=== PATIENT | male | born 1990 | race Two or more races ===

== ENCOUNTER 2024-06-27 14:07 | Inpatient (IN) | payer MEDICAID, SELFPAY ==
[2024-06-27 14:08] VITALS: BMI 42.3
[2024-06-27 15:04] VITALS: BP 139/82; PULSE 99; RESP 18; TEMP 37.2; O2SAT 98; BMI 40.5
--- NOTE | 2024-06-27 15:26 | XR_ITS ---
Examination: CT abdomen with intravenous contrast CT pelvis with intravenous contrast 2-D coronal reconstructions 2-D sagittal reconstructions Date and time of exam:June 19, 2024 1644 hrs. Indications: Rectal pain redness swelling and pain involving the right buttock region beginning 4 days ago, history abscess surgery 3 months ago. CTDI: vol (mGy) 16.4 DLP: (mGycm) 1142 Technique: Multiple axial sections of the abdomen and pelvis have been obtained. 64 slice high-resolution scanner used. 3 mm axial sections have been obtained, post intravenous injection 60 cc [id number] 2-D sagittal, coronal reconstructions obtained. Low dose protocols were performed. One or more of the following dose reduction techniques were used; automated exposure control, adjustment of the mA and/or KV according to patient size, use of iterative reconstruction technique. Findings: No focal liver or splenic lesion Contracted gallbladder Normal pancreas normal adrenal glands. No renal or ureteral calculi, no hydronephrosis Aorta normal size Normal appendix No bowel obstruction or diverticulitis Normal prostate Normal urinary bladder Right perianal abscess, 3.0 x 2.3 x 5.4 cm Impression: Right perianal abscess 3.0 x 2.3 x 5.4 cm
--- NOTE | 2024-06-27 15:27 | PD.EDRME ---
Rapid Medical Screening Exam RME Arrival date/time: 06/27/24 14:07 33-year-old male presents emergency department complaining of perirectal abscess that is been ongoing for 4 days. Chief Complaint: Skin/Abscess/Foreign Body Time Seen by Provider: 06/27/24 15:09 Vital signs: Vital Signs Temperature 99.0 F 06/27/24 15:04 Pulse Rate 99 06/27/24 15:04 Respiratory Rate 18 06/27/24 15:04 Blood Pressure 139/82 H 06/27/24 15:04 Pulse Oximetry (%) 98 06/27/24 15:04 Oxygen Delivery Method Room Air 06/27/24 15:04 Vital signs reviewed by provider: Yes
[2024-06-27 16:27] LABS: Lactate (Lactic Acid) 1.2 mMol/L (0.4-2.0)
[2024-06-27 16:28] LABS: Basophils % (Auto) 0 % (0-2.5); Eosinophils % (Auto) 0 % (0-10); Hemoglobin 14.7 g/dL (13.5-16.0); Immature Granulocytes % (Auto) 0 % (0-0); Immature Granulocytes Auto 0.04 Thou/mm3 (0.00-0.00); Lymphocytes # (Auto) 1.6 Thou/mm3 (1.0-4.8); Lymphocytes % (Auto) 13 % (10-50); Mean Corpuscular HGB Conc 34.2 g/dl (31.0-37.0); Mean Corpuscular Hemoglobin 28.7 pg (25.0-35.0); Mean Corpuscular Volume 84 fL (80-100); Monocytes # (Auto) 0.7 Thou/mm3 (0.0-0.8); Monocytes % (Auto) 6 % (0-12); Neutrophils # (Auto) 9.6 Thou/mm3 (1.8-7.7); Neutrophils % (Auto) 80 % (37-80); Nucleated Red Blood Cell % 0 /100 WBC (0); Platelet Count 284 Thou/mm3 (140-440); RDW Standard Deviation 41.2 fL (35.1-43.9); Red Blood Count 5.12 Miln/mm3 (4.50-5.90)
[2024-06-27 16:57] VITALS: BP 133/82; PULSE 88; RESP 18; TEMP 37.6; O2SAT 98
[2024-06-27 17:04] LABS: Alanine Aminotransferase 22 U/L (10-49); Albumin/Globulin Ratio 1.9 (1.2-2.2); Alkaline Phosphatase 87 U/L (46-116); Anion Gap 10 (7-16); BUN/Creatinine Ratio 8 Ratio (12-20); Bilirubin,Total 0.8 mg/dL (0.3-1.2); Blood Urea Nitrogen 8 mg/dL (9-23); Calcium 10.1 mg/dL (8.3-10.6); Calcium (Corrected) 10.1 mg/dL (8.5-10.1); Carbon Dioxide 25.4 mMol/L (20.0-31.0); Chloride 104 mMol/L (98-107); Estimated Creatinine Clearance 152.6 mL/min (>60); Globulin 2.7 gm/dL (2.3-3.5); Glucose 91 mg/dL (74-106); Osmolality,Calculated 275 (275-295); Potassium 3.8 mMol/L (3.4-5.1); Sodium 139 mMol/L (136-145); Total Protein 7.7 gm/dL (5.7-8.2); eGFR > 60 See Note
[2024-06-27 17:11] LABS: Aspartate Amino Transferase 16 U/L (0-34); Procalcitonin 0.07 ng/ml (0.0-0.49)
[2024-06-27 20:06] VITALS: BP 126/68; PULSE 93; RESP 17; TEMP 37.3; O2SAT 98
--- NOTE | 2024-06-27 20:09 | PD.EDSKIN ---
ED Skin Abcess FB-RME/HPI General Chief complaint: Skin/Abscess/Foreign Body Stated complaint: ABCESS TO RIGHT BUTT x 4 DAYS Time Seen by Provider: 06/27/24 15:09 Arrival date/time: 06/27/24 14:07 This is a 33-year-old male that comes in with complaints of anal pain for the past 4 to 5 days. Patient has a history of a perianal abscess that was drained on 04/06/24. Per patient had surgery to open it up. Patient was doing packing up until 2 weeks ago. Patient has already finished antibiotics approximately 2 months ago. RME / HPI RME / HPI narrative: 06/27/24 14:07 33-year-old male presents emergency department complaining of perirectal abscess that is been ongoing for 4 days. Related Data Previous Rx's ?Medication ?Instructions ?Recorded amoxicillin 875 mg-potassium 1 tab PO BID #14 tabs 06/30/24 clavulanate 125 mg tablet ascorbic acid (vitamin C) 250 mg 500 mg (2 x 250 mg) PO BID #14 tabs 06/30/24 tablet (Vitamin C) docusate sodium 100 mg capsule 100 mg PO BID 30 days #60 caps 06/30/24 zinc sulfate 50 mg zinc (220 mg) 220 mg (4.4 x 50 mg zinc (220 mg)) 06/30/24 capsule PO QDAY 7 days #14 caps Allergies Allergy/AdvReac Type Severity Reaction Status Date / Time No Known Allergies Allergy Verified 06/28/24 11:46 Review of Systems Review of Systems Systems Reviewed: All systems reviewed, normal except as documented Past Medical History Social History SMOKING STATUS: Former smoker Travel History EBOLA RISK: No ED Exam General General appearance: Present alert and in no apparent distress Head Head exam: Present atraumatic Eye Eye exam: Present normal appearance, PERRL and EOMI ENT ENT exam: Present normal exam, normal oropharynx and mucous membranes moist Neck Neck exam: Present normal inspection, full ROM and trachea midline Chest Chest inspection: Present normal inspection and symmetric chest wall rise Respiratory Respiratory exam: Present normal lung sounds bilaterally Cardiovascular Cardiovascular exam: Present regular rate, normal rhythm and normal heart sounds Abdominal Exam Abdominal exam: Present soft Rectal Exam Rectal exam: Present other (erythema, tenderness at a 3 o'clock position of anus slightly adjacent to it. Tenderness to palpation, old incision approximately 4 mm) Extremities Exam Extremities exam: Present normal inspection and full ROM Back Exam Back exam: Present normal inspection and full ROM Neurological Exam Neurological exam: Present alert, oriented X3 and CN II-XII intact Psychiatric Psychiatric exam: Present normal affect and normal mood Skin Skin exam: Present warm, dry, intact and normal color Course Quality Measures none Orders Category Date Time Status Patient Condition Routine Admission 06/27/24 20:54 Ordered Activity as Tolerated Routine Care 06/27/24 20:59 Ordered COVID-19 Screening Questionnaire NOW Care 06/27/24 20:[address] Screening NOW Care 06/27/24 15:27 Completed Continuous Pulse Oximetry NOW Care 06/27/24 20:58 Completed Decision to Admit X1 Care 06/27/24 20:31 Completed IV [Insert IV] STAT Care 06/27/24 20:31 Completed Intake and Output QSHIFT Care 06/27/24 21:00 Ordered Intake and Output QSHIFT Care 06/28/24 21:00 Ordered Miscellaneous Nursing Order NOW Care 06/27/24 22:54 Completed Notify provider NEEDED Care 06/27/24 20:54 Completed Sequential Compression Device QSHIFT Care 06/27/24 21:03 Completed Wound Care [Wound Care] PRN Care 06/27/24 21:19 Completed Consult to General Surgery Stat Cons 06/27/24 20:27 Ordered Referral Wound Care Routine Cons 06/27/24 21:19 Active Diet NPO after Midnight Diet 06/28/24 00:01 Completed Diet Regular Diet 06/27/[address] abdomen pelvis w con Stat Exams 06/27/24 15:26 Completed Blood Culture (Lab) Stat Lab 06/27/24 15:55 Results CBC AM DRAW Lab 06/28/24 04:04 Completed CBC AM DRAW Lab 06/29/24 04:33 Completed CBC AM DRAW Lab 06/30/24 04:54 Completed CBC Stat Lab 06/27/24 15:55 Completed CMP [Comprehensive Metabolic Panel] Stat Lab 06/27/24 15:55 Completed Comprehensive Metabolic Panel AM DRAW Lab 06/28/24 04:04 Completed Comprehensive Metabolic Panel AM DRAW Lab 06/29/24 04:33 Completed Comprehensive Metabolic Panel AM DRAW Lab 06/30/24 04:54 Completed Free T4 (Free Thyroxine) Routine Lab 06/28/24 04:04 Completed Hemoglobin A1C [Glycohemoglobin w (eAG)] AM DRAW Lab 06/28/24 04:04 Completed Lactic Acid [Lactate (Lactic Acid)] Stat Lab 06/27/24 15:55 Completed Lipid Panel AM DRAW Lab 06/28/24 04:04 Completed Magnesium AM DRAW Lab 06/28/24 04:04 Completed Partial Thromboplastin Time AM DRAW Lab 06/28/24 04:04 Completed Phosphorous AM DRAW Lab 06/28/24 04:04 Completed Procalcitonin Stat Lab 06/27/24 15:55 Completed Prothrombin Time with INR AM DRAW Lab 06/28/24 04:04 Completed Thyroid Stimulating Hormone AM DRAW Lab 06/28/24 04:04 Completed Urinalysis Routine Lab 06/27/24 14:35 Completed Acetaminophen Tab [Tylenol Tab] Med 06/27/24 20:58 Discontinued 650 mg PO Q6H PRN Clindamycin 900Mg Ivpb [Cleocin/D5w Ivpb] 900 mg Med 06/27/24 20:30 Discontinued Pre-Mixed [Pre-mixed Bag] 1 bag IV X1 Clindamycin/Ns 600 mg Ivpb [Cleocin/Ns Ivpb] Med 06/28/24 06:00 Discontinued 600 mg in 50 ml IV Q8HR Doxycycline Inj [Vibramycin Inj] 100 mg Med 06/29/24 09:00 Discontinued Sodium Chloride 0.9% (P) [NS 0.9% mini bag] 100 ml IV BID Doxycycline Inj [Vibramycin Inj] 100 mg Med 06/27/24 21:45 Discontinued Sodium Chloride 0.9% (P) [NS 0.9% mini bag] 100 ml IV X1 HYDROcodone*/APAP 5/325 [[place]ed[place] 5/325] Med 06/27/24 20:58 Discontinued 1 tab PO Q4HR PRN Heparin Inj Med 06/28/24 09:00 Discontinued 5,000 unit SC Q12HR Morphine Inj Med 06/27/24 20:58 Discontinued 2 mg IVP Q6H PRN Nicotine Patch [Nicoderm Patch] Med 06/28/24 09:00 Discontinued 21 mg TOP QDAY Ondansetron Inj [Zofran Inj] Med 06/27/24 20:58 Discontinued 4 mg IV Q6H PRN Senna [Senokot] Med 06/28/24 09:00 Discontinued 1 tab PO QDAY Code Status Routine Oth 06/27/24 20:53 Completed EKG (RT) Routine RT 06/27/24 21:05 Draft Oxygen Delivery PRN RT 06/27/24 20:58 Completed Vital Signs Vital signs: Vital Signs Temperature 99.0 F 06/27/24 15:04 Pulse Rate 99 06/27/24 15:04 Respiratory Rate 18 06/27/24 15:04 Blood Pressure 139/82 H 06/27/24 15:04 Pulse Oximetry (%) 98 06/27/24 15:04 Oxygen Delivery Method Room Air 06/27/24 15:04 Skin / Abscess / Foreign Body MDM Narrative MDM Narrative:: ct abdomen and pelvis: Findings: No focal liver or splenic lesion Contracted gallbladder Normal pancreas normal adrenal glands. No renal or ureteral calculi, no hydronephrosis Aorta normal size Normal appendix No bowel obstruction or diverticulitis Normal prostate Normal urinary bladder Right perianal abscess, 3.0 x 2.3 x 5.4 cm Impression: Right perianal abscess 3.0 x 2.3 x 5.4 cm Labs significant for white count of 12.0, hemoglobin and hematocrit of 14.7 and 43, B MP unremarkable, lactic acid 1.2 procalcitonin 0.07. I did call Dr. Tenorio and I let him know patient case. He stated he would consult on patient in the morning. He would like patient to be n.p.o. after midnight. He would like patient treated with clindamycin 800 mg IV every 8 8 hours. Patient data External records reviewed:: [facility] previous records Clinical information provided by:: patient Social determinants that could affect healthcare access:: none Patient has the following chronic illnesses:: none How is presenting disease/condition affected by chronic disease/condition?: no chronic disease Evaluation data The following diagnostics were reviewed and interpreted by me:: lab results and radiology exam(s) Lab and/or radiology exams considered but not ordered:: none Interpretation Summary: see note Medications / Prescriptions Medications or Prescriptions considered but not ordered:: none Medication administrations:: Medication Administration History Discontinued Medications Acetaminophen (Acetaminophen 325 Mg Tablet) 650 mg PO Q6H PRN PRN Reason: Pain (1-3) and Fever >100.3 Stop: 07/27/24 20:57 Hydrocodone Bitart/Acetaminophen (Hydrocodone/Apap 5/325 Tablet) 1 tab PO Q4HR PRN PRN Reason: PAIN SCALE 4-6 (Moderate Stop: 07/02/24 20:57 Ascorbic Acid (Ascorbic Acid 250 Mg Tablet) 500 mg PO BID [facility] Stop: 07/28/24 20:59 Last Admin: 06/30/24 09:00 Dose: 500 mg Documented By: Admin: 06/29/24 22:08 Dose: 500 mg Documented By: Admin: 06/29/24 09:24 Dose: 500 mg Documented By: Admin: 06/28/24 21:14 Dose: 500 mg Documented By: ALAN Bupivacaine HCl/Epinephrine Bitart (Bupivacaine Mpf/Epi 0.5% 30 Ml Vial 1:200,000) Confirm Administered Dose 30 ml .ROUTE .STK-MED ONE Stop: 06/28/24 11:57 Dexamethasone Sodium Phosphate (Dexamethasone Sod Phos Inj 10 Mg/Ml Vial) Confirm Administered Dose 10 mg .ROUTE .STK-MED ONE Stop: 06/28/24 11:40 Docusate Sodium (Docusate Sod 100 Mg Capsule) 100 mg PO BID [facility]; Protocol Stop: 07/28/24 20:59 Last Admin: 06/30/24 09:00 Dose: 100 mg Documented By: Admin: 06/29/24 22:09 Dose: 100 mg Documented By: Admin: 06/29/24 09:24 Dose: 100 mg Documented By: Admin: 06/28/24 21:14 Dose: 100 mg Documented By: ALAN Fentanyl Citrate (Fentanyl Cit Inj 50 Mcg/Ml Amp 2ml) Confirm Administered Dose 100 mcg .ROUTE .STK-MED ONE Stop: 06/28/24 11:37 Fentanyl Citrate (Fentanyl Cit Inj 50 Mcg/Ml Amp 2ml) 25 mcg IV Q5M PRN PRN Reason: PAIN SCALE 1-3 (mild Stop: 06/28/24 13:57 Heparin Sodium (Porcine) (Heparin Sod Inj 5000 Unit/Ml Vial) 5,000 unit SC Q12HR [facility] Stop: 07/12/24 08:59 Last Admin: 06/30/24 08:58 Dose: 5,000 unit Documented By: JESSICA Co-signed By: ISH Admin: 06/29/24 22:08 Dose: 5,000 unit Documented By: ALAN Co-signed By: JOHANN Admin: 06/29/24 09:24 Dose: 5,000 unit Documented By: GULSHAN Co-signed By: JEAN Admin: 06/28/24 21:14 Dose: 5,000 unit Documented By: ALAN Co-signed By: ALLY Admin: 06/28/24 08:37 Dose: 5,000 unit Documented By: SUKHWINDER Co-signed By: RIZWANA Clindamycin Phosphate 900 mg/ (IV Miscellaneous Supplies) 50 mls @ 50 mls/hr IV X1 ONE Stop: 06/27/24 21:29 Last Infusion: 06/27/24 21:54 Dose: Infused Documented By: [email or web address]) Admin: 06/27/24 20:38 Dose: 50 mls/hr Documented By: [email or web address]) Doxycycline Hyclate 100 mg/ (Sodium Chloride) 100 mls @ 100 mls/hr IV BID [facility] Stop: 07/04/24 21:14 Clindamycin/Sodium Chloride (Cleocin/Ns Ivpb) 600 mg in 50 mls @ 100 mls/hr IV Q8HR [facility] Stop: 07/05/24 05:59 Last Admin: 06/28/24 14:23 Dose: 100 mls/hr Documented By: Infusion: 06/28/24 05:56 Dose: Infused Documented By: Admin: 06/28/24 05:26 Dose: 100 mls/hr Documented By: ALAN Doxycycline Hyclate 100 mg/ (Sodium Chloride) 100 mls @ 100 mls/hr IV X1 ONE Stop: 06/27/24 22:44 Last Infusion: 06/27/24 23:04 Dose: Infused Documented By: RIZWANA(2) Admin: 06/27/24 22:00 Dose: 100 mls/hr Documented By: [email or web address]) Acetaminophen (Ofirmev Inj) 1,000 mg in 100 mls @ 250 mls/hr IV Q6HR [facility] Stop: 06/29/24 06:23 Last Admin: 06/29/24 05:06 Dose: 250 mls/hr Documented By: Infusion: 06/28/24 23:59 Dose: Infused Documented By: Admin: 06/28/24 23:35 Dose: 250 mls/hr Documented By: Infusion: 06/28/24 18:43 Dose: Infused Documented By: Admin: 06/28/24 18:19 Dose: 250 mls/hr Documented By: Infusion: 06/28/24 14:08 Dose: Infused Documented By: Admin: 06/28/24 13:44 Dose: 250 mls/hr Documented By: SUKHWINDER Piperacillin/Tazobactam/Dextrose (Zosyn) 3.375 gm in 50 mls @ 12.5 mls/hr IV Q8HR [facility]; Protocol Stop: 07/05/24 21:59 Last Admin: 06/30/24 05:57 Dose: 12.5 mls/hr Documented By: Infusion: 06/30/24 02:07 Dose: Infused Documented By: Admin: 06/29/24 22:07 Dose: 12.5 mls/hr Documented By: Infusion: 06/29/24 18:38 Dose: Infused Documented By: Admin: 06/29/24 14:38 Dose: 12.5 mls/hr Documented By: Infusion: 06/29/24 09:06 Dose: Infused Documented By: Admin: 06/29/24 05:06 Dose: 12.5 mls/hr Documented By: Infusion: 06/29/24 01:14 Dose: Infused Documented By: Admin: 06/28/24 21:14 Dose: 12.5 mls/hr Documented By: ALAN Piperacillin/Tazobactam/Dextrose (Zosyn) 3.375 gm in 50 mls @ 100 mls/hr IV X1 ONE Stop: 06/28/24 15:59 Last Admin: 06/28/24 15:31 Dose: 100 mls/hr Documented By: SUKHWINDER Vancomycin HCl (Vancomycin/Water 1250 Mg Ivpb) 250 mls @ 120 mls/hr IV TID [facility] Stop: 07/05/24 15:29 Last Admin: 06/29/24 05:05 Dose: 120 mls/hr Documented By: Infusion: 06/28/24 23:19 Dose: Infused Documented By: Admin: 06/28/24 21:14 Dose: 120 mls/hr Documented By: Infusion: 06/28/24 18:08 Dose: Infused Documented By: Admin: 06/28/24 16:03 Dose: 120 mls/hr Documented By: SUKHWINDER Vancomycin HCl 1,500 mg/ (Sodium Chloride) 500 mls @ 200 mls/hr IV Q8HR [facility] Stop: 07/06/24 14:29 Last Admin: 06/30/24 05:56 Dose: 200 mls/hr Documented By: Infusion: 06/30/24 00:38 Dose: Infused Documented By: Admin: 06/29/24 22:08 Dose: 200 mls/hr Documented By: Infusion: 06/29/24 17:09 Dose: Infused Documented By: Admin: 06/29/24 14:39 Dose: 200 mls/hr Documented By: GULSHAN Cefazolin Sodium (Ancef 2gm Ivpb) 2 gm in 100 mls @ 100 mls/hr IV Q8HR [facility] Stop: 07/07/24 08:01 Last Admin: 06/30/24 08:58 Dose: 100 mls/hr Documented By: JESSICA Ketorolac Tromethamine (Ketorolac Inj 30 Mg/Ml Vial) Confirm Administered Dose 30 mg .ROUTE .STK-MED ONE Stop: 06/28/24 11:40 Midazolam HCl (Midazolam Inj 1 Mg/Ml Vial 2 Ml) Confirm Administered Dose 2 mg .ROUTE .STK-MED ONE Stop: 06/28/24 11:39 Morphine Sulfate (Morphine Sulf Inj 10 Mg/Ml Vial) 2 mg IVP Q6H PRN PRN Reason: PAIN SCALE 7-10 (Severe Stop: 07/02/24 20:57 Last Admin: 06/28/24 06:08 Dose: 2 mg Documented By: ALAN Nicotine (Nicotine Patch 21 Mg/24 Hr Patch.Td24) 21 mg TOP QDAY [facility] Stop: 07/28/24 08:59 Last Admin: 06/30/24 09:00 Dose: 21 mg Documented By: Admin: 06/29/24 09:24 Dose: 21 mg Documented By: Admin: 06/28/24 08:37 Dose: 21 mg Documented By: SUKHWINDER Ondansetron HCl (Ondansetron Inj 2 Mg/Ml Inj 2 Ml) 4 mg IV Q6H PRN; Protocol PRN Reason: NAUSEA OR VOMITING Stop: 07/27/24 20:57 Ondansetron HCl (Ondansetron Inj 2 Mg/Ml Inj 2 Ml) Confirm Administered Dose 4 mg .ROUTE .STK-MED ONE Stop: 06/28/24 11:40 Ondansetron HCl (Ondansetron Inj 2 Mg/Ml Inj 2 Ml) 4 mg IV X1 ONE Stop: 06/28/24 11:58 Pharmacy Consult (Vancomycin Pharmacy To Dose 1 Each Each) 1 each IV QDAY PRN PRN Reason: CONSULT Stop: 07/28/24 15:14 Propofol (Propofol Inj 10 Mg/Ml Vial 20 Ml) Confirm Administered Dose 200 mg IV .STK-MED ONE Stop: 06/28/24 11:37 Sennosides (Senna Tablet) 1 tab PO QDAY [facility]; Protocol Stop: 07/28/24 08:59 Last Admin: 06/28/24 08:42 Dose: Not Given Documented By: EA Non-Admin Reason: NPO Vancomycin HCl (Vancomycin Inj 1,000 Mg Vial) Confirm Administered Dose 1,000 mg .ROUTE .STK-MED ONE Stop: 06/29/24 21:45 Last Admin: 06/29/24 22:23 Dose: Not Given Documented By: MP Non-Admin Reason: Duplicate Medication on eMAR Vancomycin HCl (Vancomycin Inj 500 Mg Vial) Confirm Administered Dose 500 mg .ROUTE .STK-MED ONE Stop: 06/29/24 21:45 Last Admin: 06/29/24 22:23 Dose: Not Given Documented By: MP Non-Admin Reason: Duplicate Medication on eMAR Vancomycin HCl (Vancomycin Inj 1,000 Mg Vial) Confirm Administered Dose 1,000 mg .ROUTE .STK-MED ONE Stop: 06/30/24 05:31 Last Admin: 06/30/24 06:15 Dose: Not Given Documented By: MP Non-Admin Reason: Duplicate Medication on eMAR Vancomycin HCl (Vancomycin Inj 500 Mg Vial) Confirm Administered Dose 500 mg .ROUTE .STK-MED ONE Stop: 06/30/24 05:31 Last Admin: 06/30/24 06:15 Dose: Not Given Documented By: MP Non-Admin Reason: Duplicate Medication on eMAR Zinc Sulfate (Zinc Sulfate 220 Mg Capsule) 220 mg PO QDAY [facility] Stop: 07/28/24 13:19 Last Admin: 06/30/24 08:59 Dose: 220 mg Documented By: Admin: 06/29/24 09:23 Dose: 220 mg Documented By: Admin: 06/28/24 13:44 Dose: 220 mg Documented By: SUKHWINDER see mar Consultations Consultation(s) initiated? (list below): No Diagnosis Skin/Abscess Differential Diagnosis: abscess of skin or subcutaneous tissue and cellulitis Most likely diagnosis given after review of the tests above:: abscess Admission Indicated Admission indicated?: indicated Admission Request Was there a request for admission?: Yes Admission Attestation Admission request attestation: Discussed case with Hospitalist service regarding admission. Discussed patients ED course, exam findings, labs, and radiology results. The Hospitalist agrees to accept the patient for admission. Disposition Plan Disposition Plan: Admit Discharge Plan Plan Patient Disposition: Admit Acute Care w/in Hospital Patient condition on transfer: Stable Problem List Clinical Impression: Perianal abscess, Cellulitis Patient/Caregiver Discharge Instructions Discharge Activity: activity as tolerated PA/BOOKMAKER MAP Supervising Physician PA/BOOKMAKER MAP Supervising Physician: scott
[2024-06-27 20:28] VITALS: BP 126/68; PULSE 83; RESP 18; O2SAT 95
[2024-06-27] MEDS: CLINDAMYCIN 900MG IVPB 900 MG in PRE-MIXED 1 BAG 50 MG IV (20:38)
--- NOTE | 2024-06-27 21:05 | EKG_ITS ---
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
--- NOTE | 2024-06-27 21:13 | PC.RT ---
medical laboratory technical officer made aware of EKG at this time pt remains on ED1
--- NOTE | 2024-06-27 21:20 | PD.RESHP ---
Documentation for date of: 06/27/24 [facility] History of Present Illness Chief complaint: Perianal abscess History of present illness: Mr. Garcia is a 33-year-old male with no significant past medical history who presented to [facility] on 06/27/2022 for with chief complaint of pain and discomfort in right gluteal region. Patient reported that his symptoms started about a week ago, complains of severe discomfort interfering with his activities of daily living, reported having fever chills and sweats yesterday night. He reports that his pain is aggravated when he has a bowel movement, reports his last bowel movement was about 2 days ago, patient complained of similar symptoms in the past, reports having incision and drainage in March earlier this year, was admitted in the hospital in [place]. Otherwise he denies any chest pain shortness of breath and headache. ED Course: ED Vitals: On presentation BP 139/82, P 99, RR 18, temp 99.0, O2 sat 98 on room air ED Labs: ED labs significant for WBC 12,000, neutrophil 9600, BUN 8, Pro-Dank 0.07 ED Imaging: CT scan of abdomen pelvis shows Right perianal abscess 3.0 x 2.3 x 5.4 cm ED Treatment: General surgery was consulted in ED, patient started on clindamycin per general surgery recommendations, patient will receive surgical evaluation in morning, will keep n.p.o. after midnight. Patient admitted for management of perianal abscess. Review of Systems Review of Systems Narrative Review of Systems: ROS: -CONSTITUTIONAL: Denies weight loss, positive for fever and chills. -HEENT: Denies changes in vision and hearing. -RESPIRATORY: Denies SOB and cough. -CV: Denies palpitations and Chest Pain. -GI: Deniesnausea, vomiting and diarrhea. Positive for right gluteal pain, constipation. -: Denies dysuria and urinary frequency. -MSK: Denies myalgia and joint pain. -SKIN: Denies rash and pruritus. -NEUROLOGICAL: Denies headache and syncope. -PSYCHIATRIC: Denies recent changes in mood. Denies anxiety and depression. Past Medical History Past Medical History Comments PMH COMMENT: PMH: No significant past medical history PSHx: I&D for right gluteal abscess in March 2024 in [place], arm and foot surgery in the past. 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 Obese. Conversational and non-toxic appearing. HEENT: Normocephalic, atraumatic, mucous membranes moist. Heart: Regular rate and rhythm, no murmurs. Lungs: Clear to auscultation with no wheezing or crackles. Abdomen: Soft, nondistended, nontender, positive bowel sounds. ?No guarding or rebound tenderness. Neurologic: Alert and oriented x3, no gross neurological deficit, and patient able to move all 4 extremities. Extremities: No edema. Skin: Redness and tenderness noted in right gluteal region, perianal. Results: Labs 06/27/24 15:55 06/27/24 15:55 Labs: Short CBC 06/27/24 Range/Units 15:55 WBC 12.0 H (3.8-10.6) Thou/mm3 Hgb 14.7 (13.5-16.0) g/dL Hct 43.0 (41.0-53.0) % Plt Count 284 (140-440) Thou/mm3 BMP 06/27/24 15:55 Sodium 139 Potassium 3.8 Chloride 104 Carbon Dioxide 25.4 BUN 8 L Creatinine 1.0 Glucose 91 Calcium 10.1 Liver Function 06/27/24 Range/Units 15:55 Total Bilirubin 0.8 (0.3-1.2) mg/dL AST 16 (0-34) U/L ALT 22 (10-49) U/L Alkaline Phosphatase 87 (46-116) U/L Albumin 5.0 (3.5-5.0) gm/dL Quality Measures Quality Measures VTE prophylaxis Medications Home Medications and Allergies Home Medications ?Medication ?Instructions ?Recorded ?Confirmed ?Type No Known Home Medications 06/28/24 06/28/24 History Allergies Allergy/AdvReac Type Severity Reaction Status Date / Time No Known Allergies Allergy Verified 06/27/24 14:10 Visit Medications Acetaminophen (Acetaminophen 325 Mg Tablet) 650 mg PO Q6H PRN PRN Reason: Pain (1-3) and Fever >100.3 Stop: 07/27/24 20:57 Hydrocodone Bitart/Acetaminophen (Hydrocodone/Apap 5/325 Tablet) 1 tab PO Q4HR PRN PRN Reason: PAIN SCALE 4-6 (Moderate Stop: 07/02/24 20:57 Heparin Sodium (Porcine) (Heparin Sod Inj 5000 Unit/Ml Vial) 5,000 unit SC Q12HR GEOVANNA Stop: 07/12/24 08:59 Clindamycin Phosphate 900 mg/ (IV Miscellaneous Supplies) 50 mls @ 50 mls/hr IV X1 ONE Stop: 06/27/24 21:29 Last Admin: 06/27/24 20:38 Dose: 50 mls/hr Doxycycline Hyclate 100 mg/ (Sodium Chloride) 100 mls @ 100 mls/hr IV BID [facility] Stop: 07/04/24 21:14 Clindamycin/Sodium Chloride (Cleocin/Ns Ivpb) 600 mg in 50 mls @ 100 mls/hr IV Q8HR [facility] Stop: 07/05/24 08:59 Morphine Sulfate (Morphine Sulf Inj 10 Mg/Ml Vial) 2 mg IVP Q6H PRN PRN Reason: PAIN SCALE 7-10 (Severe Stop: 07/02/24 20:57 Ondansetron HCl (Ondansetron Inj 2 Mg/Ml Inj 2 Ml) 4 mg IV Q6H PRN; Protocol PRN Reason: NAUSEA OR VOMITING Stop: 07/27/24 20:57 Sennosides (Senna Tablet) 1 tab PO QDAY [facility]; Protocol Stop: 07/28/24 08:59 Assessment & Plan Plan Summary: Mr. Garcia is a 33-year-old male with no significant past medical history who presented to [facility] on 06/27/2022 for with chief complaint of pain and discomfort in right gluteal region. Patient admitted for management of perianal abscess. #Perianal Abscess #Right buttock cellulitis #Leukocytosis Complains of severe discomfort interfering with his activities of daily living, reported having fever chills and sweats yesterday night, pain is aggravated when he has a bowel movement Had incision and drainage in March earlier this year, was admitted in the hospital in [place] ED labs significant for WBC 12,000, neutrophil 9600 CT scan of abdomen pelvis shows Right perianal abscess 3.0 x 2.3 x 5.4 cm General surgery was consulted in ED, patient started on clindamycin per general surgery recommendations. Plan: -Continue Clindamycin and Doxycycline -Tylenol/[place]/morphine as needed for pain -General Surgery consulted, appreciate recommendations -Referral to wound care -Follow blood culture DVT prophylaxis: Heparin GI prophylaxis: Not indicated Diet: Regular diet Lines: Peripheral IV Code status: Full code Case discussed with Attending Dr. Mattson. Kendrick Handley PGY1 Attending Provider Attestation/Addendum Patient was seen in room 351. He was admitted for right perianal abscess. Surgical evaluation was requested. He was started on IV antibiotics.
[2024-06-27] MEDS: DOXYCYCLINE INJ 100 MG in SODIUM CHLORIDE 0.9% (P) 100 ML IV (22:00)
[2024-06-27 22:41] VITALS: BP 122/73; PULSE 82; RESP 18; O2SAT 98
[2024-06-27 22:49] VITALS: BMI 41.8
[2024-06-27 23:54] VITALS: PULSE 85; RESP 16; RESP 95
[2024-06-28] VITALS (12 sets, daily range): BP systolic 104–144; BP diastolic 58–77; PULSE 69–83; RESP 16–97; TEMP 36.2–37; O2SAT 95–100
[2024-06-28] MEDS: CLINDAMYCIN/NS 600 MG IVPB 600 MG/50 ML BAG 100 MG IV ×2 (05:26→14:23)
[2024-06-28 05:55] LABS: Basophils % (Auto) 0 % (0-2.5); Eosinophils # (Auto) 0.1 Thou/mm3 (0.0-0.5); Eosinophils % (Auto) 1 % (0-10); Hematocrit 38.8 % (41.0-53.0); Hemoglobin 12.8 g/dL (13.5-16.0); Immature Granulocytes % (Auto) 0 % (0-0); Immature Granulocytes Auto 0.04 Thou/mm3 (0.00-0.00); Lymphocytes # (Auto) 1.7 Thou/mm3 (1.0-4.8); Lymphocytes % (Auto) 17 % (10-50); Mean Corpuscular Hemoglobin 28.3 pg (25.0-35.0); Mean Corpuscular Volume 86 fL (80-100); Monocytes # (Auto) 0.9 Thou/mm3 (0.0-0.8); Monocytes % (Auto) 9 % (0-12); Neutrophils # (Auto) 7.4 Thou/mm3 (1.8-7.7); Neutrophils % (Auto) 73 % (37-80); Nucleated Red Blood Cell % 0 /100 WBC (0); Platelet Count 232 Thou/mm3 (140-440); RDW Standard Deviation 41.6 fL (35.1-43.9); Red Blood Count 4.53 Miln/mm3 (4.50-5.90); White Blood Count 10.1 Thou/mm3 (3.8-10.6)
[2024-06-28] MEDS: MORPHINE SULF INJ 10 MG/ML VIAL 2 MG IVP (06:08)
[2024-06-28 06:10] LABS: Partial Thromboplastin Time 29.5 Seconds (22.0-36.0); Prothrombin Time 11.4 Seconds (9.0-12.2)
[2024-06-28 06:28] LABS: Alanine Aminotransferase 21 U/L (10-49); Albumin, Serum 4.1 gm/dL (3.5-5.0); Albumin/Globulin Ratio 1.9 (1.2-2.2); Alkaline Phosphatase 70 U/L (46-116); Anion Gap 8 (7-16); Aspartate Amino Transferase 14 U/L (0-34); BUN/Creatinine Ratio 8 Ratio (12-20); Bilirubin,Total 0.6 mg/dL (0.3-1.2); Blood Urea Nitrogen 8 mg/dL (9-23); Calcium 9.2 mg/dL (8.3-10.6); Calcium (Corrected) 9.2 mg/dL (8.5-10.1); Carbon Dioxide 29.1 mMol/L (20.0-31.0); Cardiac Risk Estimate 3.6 RATIO (4.0-6.7); Chloride 104 mMol/L (98-107); Cholesterol 127 mg/dL (132-200); Estimated Creatinine Clearance 155.3 mL/min (>60); Globulin 2.2 gm/dL (2.3-3.5); Glucose 122 mg/dL (74-106); HDL Cholesterol 35 mg/dL (40-60); LDL Cholesterol,Calculated 72 mg/dL (0-130); Magnesium 1.9 mg/dL (1.6-2.6); Osmolality,Calculated 280 (275-295); Phosphorous 4.4 mg/dL (2.4-5.1); Potassium 3.7 mMol/L (3.4-5.1); Sodium 141 mMol/L (136-145); Thyroid Stimulating Hormone 0.38 uIU/mL (0.55-4.78); Total Protein 6.3 gm/dL (5.7-8.2); Triglycerides 100 mg/dL (30-150); eGFR > 60 See Note
[2024-06-28 06:34] LABS: Glucose Estimated Average 94 mg/dL (80-131); Hemoglobin A1C 4.9 % Hgb (4.8-6.0)
[2024-06-28] MEDS: NICOTINE PATCH 21 MG/24 HR PATCH.TD24 TOP (08:37)
[2024-06-28] MEDS: HEPARIN SOD INJ 5000 UNIT/ML VIAL SC ×2 (08:37→21:14)
[2024-06-28 10:20] LABS: Free T4 (Free Thyroxine) 1.29 ng/dL (0.89-1.76)
--- NOTE | 2024-06-28 10:38 | ESCONSULT_ITS ---
HPI Consult details Consult date: 06/27/24 Reason for consultation narrative: Recurrent perirectal abscess History of present illness: 33-year-old obese male underwent incision and drainage of right perirectal abscess about 3 months ago in [place]. He states that he was managing the wound with packing every other day. Over the past 5 days he has noted increased swelling and tenderness that has been getting progressively worse. He denies any drainage or bleeding. He states that he did have subjective fever and chills. CT scan was obtained that revealed 5.4 cm right perirectal abscess. He was started on IV antibiotics and admitted for further management. Review of Systems Constitutional Constitutional: Reports chills and Reports fever(s) Cardiovascular Cardiovascular: Denies chest pain Respiratory Respiratory: Denies cough Gastrointestinal Gastrointestinal: Denies abdominal pain, Reports hematochezia, Denies nausea and Denies vomiting Genitourinary Genitourinary: Denies difficulty urinating Hematologic/Lymphatic Hematologic/Lymphatic: Denies easy bleeding and Denies easy bruising Past Medical History Surgical History OTHER SURGICAL HX: I&D of perirectal abscess. Arm and foot orthopedic surgeries Social History SMOKING STATUS: Current every day smoker (Vaping) SUBSTANCE USE: does not use ALCOHOL: Current Meds Home Medications and Allergies Home Medications ?Medication ?Instructions ?Recorded ?Confirmed ?Type No Known Home Medications 06/28/24 06/28/24 History Allergies Allergy/AdvReac Type Severity Reaction Status Date / Time No Known Allergies Allergy Verified 06/27/24 14:10 Exam Vital Signs Temp Pulse Resp BP Pulse Ox O2 Del Method 97.9 F 76 18 120/75 98 Room Air 06/28/24 07:27 06/28/24 07:27 06/28/24 07:27 06/28/24 07:27 06/28/24 07:27 06/28/24 07:27 Constitutional Constitutional: no acute distress Routine Abdominal Exam Abdominal: Present soft and normoactive bowel sounds; Absent tenderness or distended Routine Rectal Exam Comments: Significant tenderness with cellulitis and induration of right perianal region surrounding his previous incision Results Results: Laboratory Laboratory results: results reviewed Results: Imaging CT scan - abdomen: report reviewed and image reviewed CT scan - pelvis: report reviewed and image reviewed Assessment & Plan Problem List (1) Perianal abscess: Status: Acute Additional Assessment Additional comments: Recurrent right perianal abscess Plan Continue IV antibiotics and keep NPO. Will plan for incision and drainage of right perianal abscess. Risks include but not limited to infection, bleeding, chronic nonhealing wound, need for further procedure and or operation, possible developing anal fistula in the future discussed with the patient and his family. Benefits and alternatives explained to them, all their questions answered, they agreed and consented to proceed with the operation.
--- NOTE | 2024-06-28 12:12 | SUR.PHASEI ---
1212 Patient arrived to recovery resting comfortably in [facility], on oxygen 8L via oxy mask with an oral airway in place, breathing unlabored, vital signs stable, dressing intact to buttock; packed with fluffs, fluffs, abd, medipore tape, no bleeding noted, lung sounds clear upon auscultation, bilateral radial upon auscultation, report received Zak NANCE and Dr. Reyna
--- NOTE | 2024-06-28 12:20 | PD.SUROPNT ---
Date of Procedure 06/28/24 Pre Op Diagnosis Recurrent right perirectal abscess Post Op Diagnosis Recurrent right perirectal abscess Procedure Incision and drainage of right perirectal abscess Findings Right perirectal cellulitis with induration and recurrent abscess Procedure Description Patient brought into the operating room in supine position. After administration of general endotracheal anesthesia, patient was placed in high lithotomy position. His perineum was prepped and draped in standard surgical manner. He was noted to have cellulitis and induration of right perirectal region and an incision from his previous incision and drainage site. There was some pus emanating from the incision site. The area was anesthetized with half percent Marcaine with epinephrine. The incision was extended to approximately 1 cm cross-shaped dissection was deepened into soft tissue. Copious amount of purulent fluid encountered, cultures were obtained. The purulent fluid from the cavity cavity was evacuated. The cavity was then washed and irrigated copiously with Betadine mixed with peroxide and saline and further washed with warm saline. Hemostasis achieved using electrocautery. The cavity was packed with wet-to-dry dressings. He tolerated the procedure well. He was placed in supine position and extubated. He was breathing spontaneously and without difficulty and was transferred to postanesthesia care in stable condition. Instruments, needles and sponge counts were reported to be correct x 2. Anesthesia MAC and local Pathology / specimen Other (Cultures from the abscess cavity) Estimated Blood Loss 5 Condition Stable Disposition PACU Surgeon Gerard Tenorio MD Surgical Staff Operation Date: 06/28/24 11:30 <No data on this case meets the specified criteria>
--- NOTE | 2024-06-28 12:38 | SUR.PHASEI ---
patient drinking water and eating apple sauce tolerating well
--- NOTE | 2024-06-28 12:43 | SUR.PHASEI ---
1241 Report given to Eleanor NANCE, patient meets discharge criteria from recovery, awake and alert, breathing unlabored, vital signs stable, denies pain, dressing intact; no bleeding noted, patient ate an apple sauce and drinking water, denies nausea 1243 Patient transported via gurney to room 351 without incident, patient able to ambulate from [place] to bed with stand by assist, patient resting comfortably in [facility] with call light in reach when this sql report writer left patients room
[2024-06-28] MEDS: ZINC SULFATE 220 MG CAPSULE PO (13:44)
[2024-06-28] MEDS: ACETAMINOPHEN IVPB 1,000 MG/100 ML VIAL 250 MG IV ×3 (13:44→23:35)
[2024-06-28 15:10] LABS: Collection Type, Urine Clean Catch; RBC,Urine 0 /hpf (0-3); Squamous Epithelial Cell,Urine 0 /hpf (0-5)
[2024-06-28 15:17] LABS: Bilirubin,Urine Negative (Negative); Blood,Urine Negative (Negative); Clarity,Urine Clear (Clear/Hazy); Color,Urine Yellow (Lt Yel-Yel); Glucose, Urine Negative (Negative); Ketones,Urine Negative (Negative); Leukocyte Esterase,Urine Negative (Negative); Nitrite,Urine Negative (Negative); PH,Urine 5.5 (5.0-7.0); Protein,Urine Negative (Neg - Trace); Specific Gravity,Urine 1.017 (1.001-1.035); Urobilinogen,Urine Negative mg/dL (0.0-1.0); WBC,Urine 1 /hpf (0-5)
[2024-06-28] MEDS: PIPER/TAZO 3.375 GM 3.375 GM/50 ML BAG IV ×2 (15:31→21:14)
[2024-06-28] MEDS: VANCOMYCIN/WATER 1250 MG IVPB 250 ML 120 MG IV ×2 (16:03→21:14)
--- NOTE | 2024-06-28 16:24 | PD.RESPRO ---
Documentation for date of: 06/28/24 Subjective Subjective Interval history: Patient was seen and examined at bedside. Denied any new symptoms except the pain at the perianal area. The general surgeon Dr. Tenorio was consulted he recommended to do incision and drainage today. Patient was started on doxycycline and clindamycin by the night team. However, patient reported that he used clindamycin in March for the same abscess. For that reason we will switch the patient antibiotic to Zosyn and vancomycin. Pending abscess culture and sensitivity after the drainage and also blood culture and sensitivity results. Exam Vital Signs Temp Pulse Resp BP Pulse Ox O2 Del Method O2 Flow Rate 97.2 F 73 18 120/67 96 Room Air 2 06/28/24 16:00 06/28/24 16:00 06/28/24 16:00 06/28/24 16:00 06/28/24 16:00 06/28/24 16:00 06/28/24 12:22 Narrative Exam GEN: AOx3, able to speak full sentences HEENT: NC/AC, PERRLA, oral mucosa moist, neck supple CVS: RRR, S1-S2 present, no murmurs appreciated RESP: CTAB GI: soft,non distended, non tender, NBS MSK: able to move all 4 limbs, no lower extremity edema SKIN: Extensive tattoos, warm and dry [employer]: CN II-XII and Sensation grossly intact. Objective Labs 06/29/24 04:33 06/29/24 04:33 Labs: Laboratory Results - last 24 hr 06/27/24 06/27/24 06/28/24 14:35 15:55 04:04 WBC 12.0 H 10.1 RBC 5.12 4.53 Hgb 14.7 12.8 L Hct 43.0 38.8 L MCV 84 86 MCH 28.7 28.3 MCHC 34.2 33.0 RDW Std Deviation 41.2 41.6 Plt Count 284 232 D Neut % (Auto) 80 73 Lymph % (Auto) 13 17 [place] % (Auto) 6 9 Eos % (Auto) 0 1 Baso % (Auto) 0 0 Neut # (Auto) 9.6 H 7.4 Lymph # (Auto) 1.6 1.7 [place] # (Auto) 0.7 0.9 H Eos # (Auto) 0.0 0.1 Baso # (Auto) 0.0 0.0 Immature Gran # (Auto) 0.04 H 0.04 H Absolute Nucleated RBC 0.00 0.00 Immature Gran % 0 0 Nucleated RBC % 0 0 PT 11.4 INR 1.0 APTT 29.5 Sodium 139 141 Potassium 3.8 3.7 Chloride 104 104 Carbon Dioxide 25.4 29.1 Anion Gap 10 8 BUN 8 L 8 L Creatinine 1.0 1.0 Estim Creat Clear Calc 152.6 155.3 eGFR > 60 > 60 BUN/Creatinine Ratio 8 L 8 L Glucose [address] Glu mg/dL 94 Hemoglobin A1c 4.9 Calculated Osmolality 275 280 Lactic Acid 1.2 Calcium 10.1 9.2 Corrected Calcium 10.1 9.2 Phosphorus 4.4 Magnesium 1.9 Total Bilirubin 0.8 0.6 AST 16 14 ALT 22 21 Alkaline Phosphatase 87 70 Total Protein 7.7 6.3 Albumin 5.0 4.1 D Globulin 2.7 2.2 L Albumin/Globulin Ratio 1.9 1.9 Triglycerides 100 Cholesterol 127 L LDL Cholesterol, Calc 72 HDL Cholesterol 35 L Cholesterol/HDL Ratio 3.6 L Procalcitonin 0.07 TSH 0.38 L Free T4 1.29 Ur Collection Type Clean Catch Urine Color Yellow Urine Clarity Clear Urine pH 5.5 Ur Specific [place] 1.017 Urine Protein Negative Urine Glucose (UA) Negative Urine Ketones Negative Urine Blood Negative Urine Nitrite Negative Urine Bilirubin Negative Urine Urobilinogen (Auto) Negative Ur Leukocyte Esterase Negative Urine RBC 0 Urine WBC 1 Ur Squamous Epith Cells 0 Urine Bacteria None Quality Measures Quality Measures VTE prophylaxis Assessment & Plan Assessment Current Active Medications: Generic Name Dose Route Start Last Admin Trade Name Jessa PRN Reason Stop Dose Admin Acetaminophen 650 mg 06/27/24 20:58 Acetaminophen 325 Mg Tablet PO 07/27/24 20:57 Q6H PRN Pain (1-3) and Fever >100.3 Hydrocodone Bitart/Acetaminophen 1 tab 06/27/24 20:58 Hydrocodone/Apap 5/325 Tablet PO 07/02/24 20:57 Q4HR PRN PAIN SCALE 4-6 (Moderate Ascorbic Acid 500 mg 06/28/24 21:00 Ascorbic Acid 250 Mg Tablet PO 07/28/24 20:59 BID GEOVANNA Docusate Sodium 100 mg 06/28/24 21:00 Docusate Sod 100 Mg Capsule PO 07/28/24 20:59 BID [facility] Protocol Heparin Sodium (Porcine) 5,000 unit 06/28/24 09:00 06/28/24 08:37 Heparin Sod Inj 5000 Unit/Ml Vial SC 07/12/24 08:59 5,000 unit Q12HR GEOVANNA Administration Acetaminophen 1,000 mg in 100 mls @ 250 mls/hr 06/28/24 12:00 06/28/24 13:44 Ofirmev Inj IV 06/29/24 06:23 250 mls/hr Q6HR GEOVANNA Administration Piperacillin/Tazobactam/Dextrose 3.375 gm in 50 mls @ 12.5 mls/hr 06/28/24 22:00 Zosyn IV 07/05/24 21:59 Q8HR GEOVANNA Protocol Vancomycin HCl 250 mls @ 120 mls/hr 06/28/24 15:30 06/28/24 16:03 Vancomycin/Water 1250 Mg Ivpb IV 07/05/24 15:29 120 mls/hr TID GEOVANNA Administration Morphine Sulfate 2 mg 06/27/24 20:58 06/28/24 06:08 Morphine Sulf Inj 10 Mg/Ml Vial IVP 07/02/24 20:57 2 mg Q6H PRN Administration PAIN SCALE 7-10 (Severe Nicotine 21 mg 06/28/24 09:00 06/28/24 08:37 Nicotine Patch 21 Mg/24 Hr Patch.Td24 TOP 07/28/24 08:59 21 mg QDAY GEOVANNA Administration Ondansetron HCl 4 mg 06/27/24 20:58 Ondansetron Inj 2 Mg/Ml Inj 2 Ml IV 07/27/24 20:57 Q6H PRN NAUSEA OR VOMITING Protocol Pharmacy Consult 1 each 06/28/24 15:15 Vancomycin Pharmacy To Dose 1 Each Each IV 07/28/24 15:14 QDAY PRN CONSULT Zinc Sulfate 220 mg 06/28/24 13:20 06/28/24 13:44 Zinc Sulfate 220 Mg Capsule PO 07/28/24 13:19 220 mg QDAY GEOVANNA Administration Plan Summary: A 33-year-old male patient presented to the ED due to perianal pain and discomfort for 4 days. In March this year patient had incision and drainage was done and is having packing for the past 2 months. Used clindamycin antibiotic oral at that time. Patient was admitted for perianal abscess incision and drainage. Assessment and plan #Perianal abscess #Sepsis secondary to perianal abscess History of perianal abscess that was drained in March this year. Has been having multiple packing and dressing. Finish 2 weeks of oral antibiotic clindamycin. WBC more than 12,000's. CT scan showed 3 x 2.3 x 5.4 cm of renal abscess. WBC 12,000, pulse of 100 bpm, CT showed perianal abscess. Plan Change clindamycin and doxycycline to Zosyn and vancomycin General Surgery consultation, surgery will be done today Wound care follow-up Follow-up on blood culture and abscess culture and sensitivity results. Hospital Maintenance: FEN: Start regular diet after I&D DVT ppx: Heparin subcu GI ppx: Protonix IV lines: PIV Sanchez: None Code status: Full code Dispo: MedSurg - Patient's plan and care discussed with my attending, Dr. Jennifer Appiah MD Internal Medicine PGY-2 Attending Provider Attestation/Addendum I have examined the patient, reviewed labs and imaging findings, discussed the case with the resident(s), and reviewed entered orders. I agree with the plan of care as outlined in this note, with these additional summaries/recommendations: Patient seen at bedside. Patient admitted for cellulitis and right perianal abscess. Patient went for incision and drainage of right perirectal abscess with general surgery today. Patient tolerated procedure well and currently reports his pain is controlled. Intraoperative culture was taken and will follow up results when available. Blood cultures also pending. Leukocytosis improving. Continue broad-spectrum antibiotics IV vancomycin and Zosyn for now. Repeat hematology and chemistry panel in AM. Patient updated all the plan and in agreement. All questions answered to satisfaction. Dr. Rodriguez
[2024-06-28] MEDS: DOCUSATE SOD 100 MG CAPSULE PO (21:14)
[2024-06-28] MEDS: ASCORBIC ACID 250 MG TABLET 500 MG PO (21:14)
[2024-06-29] VITALS (9 sets, daily range): BP systolic 112–135; BP diastolic 56–75; PULSE 69–85; RESP 16–98; TEMP 35.9–36.7; O2SAT 94–98
[2024-06-29] MEDS: VANCOMYCIN/WATER 1250 MG IVPB 250 ML 120 MG IV (05:05)
[2024-06-29] MEDS: ACETAMINOPHEN IVPB 1,000 MG/100 ML VIAL 250 MG IV (05:06)
[2024-06-29] MEDS: PIPER/TAZO 3.375 GM 3.375 GM/50 ML BAG IV ×3 (05:06→22:07)
[2024-06-29 06:14] LABS: Basophils % (Auto) 0 % (0-2.5); Eosinophils % (Auto) 0 % (0-10); Hematocrit 40.9 % (41.0-53.0); Hemoglobin 13.8 g/dL (13.5-16.0); Immature Granulocytes % (Auto) 1 % (0-0); Immature Granulocytes Auto 0.06 Thou/mm3 (0.00-0.00); Lymphocytes % (Auto) 9 % (10-50); Mean Corpuscular HGB Conc 33.7 g/dl (31.0-37.0); Mean Corpuscular Hemoglobin 28.8 pg (25.0-35.0); Mean Corpuscular Volume 85 fL (80-100); Monocytes # (Auto) 0.6 Thou/mm3 (0.0-0.8); Monocytes % (Auto) 5 % (0-12); Neutrophils # (Auto) 10.3 Thou/mm3 (1.8-7.7); Neutrophils % (Auto) 86 % (37-80); Nucleated Red Blood Cell % 0 /100 WBC (0); Platelet Count 234 Thou/mm3 (140-440); Red Blood Count 4.79 Miln/mm3 (4.50-5.90); White Blood Count 11.9 Thou/mm3 (3.8-10.6)
[2024-06-29 06:38] LABS: Alanine Aminotransferase 36 U/L (10-49); Albumin, Serum 4.1 gm/dL (3.5-5.0); Albumin/Globulin Ratio 1.6 (1.2-2.2); Alkaline Phosphatase 96 U/L (46-116); Anion Gap 9 (7-16); Aspartate Amino Transferase 30 U/L (0-34); BUN/Creatinine Ratio 10 Ratio (12-20); Bilirubin,Total 0.4 mg/dL (0.3-1.2); Blood Urea Nitrogen 9 mg/dL (9-23); Calcium 10.4 mg/dL (8.3-10.6); Calcium (Corrected) 10.4 mg/dL (8.5-10.1); Carbon Dioxide 26.2 mMol/L (20.0-31.0); Chloride 108 mMol/L (98-107); Creatinine (Component) 0.9 mg/dL (0.6-1.3); Estimated Creatinine Clearance 172.5 mL/min (>60); Globulin 2.5 gm/dL (2.3-3.5); Glucose 143 mg/dL (74-106); Osmolality,Calculated 285 (275-295); Sodium 143 mMol/L (136-145); Total Protein 6.6 gm/dL (5.7-8.2); eGFR > 60 See Note
[2024-06-29] MEDS: ZINC SULFATE 220 MG CAPSULE PO (09:23)
[2024-06-29] MEDS: DOCUSATE SOD 100 MG CAPSULE PO ×2 (09:24→22:09)
[2024-06-29] MEDS: HEPARIN SOD INJ 5000 UNIT/ML VIAL SC ×2 (09:24→22:08)
[2024-06-29] MEDS: NICOTINE PATCH 21 MG/24 HR PATCH.TD24 TOP (09:24)
[2024-06-29] MEDS: ASCORBIC ACID 250 MG TABLET 500 MG PO ×2 (09:24→22:08)
--- NOTE | 2024-06-29 09:42 | PC.SS ---
Follow up note: Pending cultures. Pt is on Ivantibiotic. Pending Dr. Pro recommendations for dc.
--- NOTE | 2024-06-29 12:10 | PD.SURPROG ---
Documentation for date of: 06/29/24 Subjective Subjective Narrative: Patient is seen and examined. Pain is improving Exam Vital Signs Temp Pulse Resp BP Pulse Ox O2 Del Method O2 Flow Rate 98.1 F 72 18 112/56 L 96 Room Air 2 06/29/24 08:00 06/29/24 08:00 06/29/24 08:00 06/29/24 08:00 06/29/24 08:00 06/29/24 08:00 06/29/24 08:00 Constitutional Constitutional: no acute distress Routine Rectal Exam Comments: Still with cellulitis. Backings intact with some purulent drainage and minimal bleeding Assessment & Plan Assessment Additional comments: Postop day #1 status post incision and drainage of perirectal abscess Plan Continue IV antibiotics. Keep dressings intact, will remove dressings tomorrow Procedures Procedures Incision and drainage of right perirectal abscess
[2024-06-29 13:57] LABS: Vancomycin,Trough 9.6 mcg/mL (5.0-10.0)
--- NOTE | 2024-06-29 14:10 | ESPR_ITS ---
Documentation for date of: 06/29/24 Subjective Subjective Interval history: Patient seen at bedside today. Patient underwent successful I&D yesterday under the care of general surgery Dr. Tenorio. Patient's abscess culture continues to remain pending. We will de-escalate antibiotic therapy once cultures result. Patient will remain hospitalized for 1 more day. Exam Vital Signs Temp Pulse Resp BP Pulse Ox O2 Del Method O2 Flow Rate 98.1 F 72 18 112/56 L 96 Room Air 2 06/29/24 08:00 06/29/24 08:00 06/29/24 08:00 06/29/24 08:00 06/29/24 08:00 06/29/24 08:00 06/29/24 08:00 Narrative Exam GEN: AOx3, able to speak full sentences HEENT: NC/AC, PERRLA, oral mucosa moist, neck supple CVS: RRR, S1-S2 present, no murmurs appreciated RESP: CTAB GI: soft,non distended, non tender, NBS MSK: able to move all 4 limbs, no lower extremity edema SKIN: Extensive tattoos, warm and dry LOOM CONTROL CHAIN BUILDER: CN II-XII and Sensation grossly intact. Objective Labs 06/29/24 04:33 06/29/24 04:33 Labs: Laboratory Results - last 24 hr 06/27/24 06/29/24 06/29/24 14:35 04:33 13:14 WBC 11.9 H RBC 4.79 Hgb 13.8 Hct 40.9 L MCV 85 MCH 28.8 MCHC 33.7 RDW Std Deviation 42.0 Plt Count 234 Neut % (Auto) 86 H Lymph % (Auto) 9 L [place] % (Auto) 5 Eos % (Auto) 0 Baso % (Auto) 0 Neut # (Auto) 10.3 H Lymph # (Auto) 1.0 [place] # (Auto) 0.6 Eos # (Auto) 0.0 Baso # (Auto) 0.0 Immature Gran # (Auto) 0.06 H Absolute Nucleated RBC 0.00 Immature Gran % 1 H Nucleated RBC % 0 Sodium 143 Potassium 4.0 Chloride 108 H Carbon Dioxide 26.2 Anion Gap 9 BUN 9 Creatinine 0.9 Estim Creat Clear Calc 172.5 eGFR > 60 BUN/Creatinine Ratio 10 L Glucose 143 H Calculated Osmolality 285 Calcium 10.4 Corrected Calcium 10.4 H Total Bilirubin 0.4 AST 30 ALT 36 Alkaline Phosphatase 96 D Total Protein 6.6 Albumin 4.1 Globulin 2.5 Albumin/Globulin Ratio 1.6 Ur Collection Type Clean Catch Urine Color Yellow Urine Clarity Clear Urine pH 5.5 Ur Specific [place] 1.017 Urine Protein Negative Urine Glucose (UA) Negative Urine Ketones Negative Urine Blood Negative Urine Nitrite Negative Urine Bilirubin Negative Urine Urobilinogen (Auto) Negative Ur Leukocyte Esterase Negative Urine RBC 0 Urine WBC 1 Ur Squamous Epith Cells 0 Urine Bacteria None Vancomycin Trough 9.6 Quality Measures Quality Measures VTE prophylaxis Assessment & Plan Assessment Current Active Medications: Generic Name Dose Route Start Last Admin Trade Name Freq PRN Reason Stop Dose Admin Acetaminophen 650 mg 06/27/24 20:58 Acetaminophen 325 Mg Tablet PO 07/27/24 20:57 Q6H PRN Pain (1-3) and Fever >100.3 Hydrocodone Bitart/Acetaminophen 1 tab 06/27/24 20:58 Hydrocodone/Apap 5/325 Tablet PO 07/02/24 20:57 Q4HR PRN PAIN SCALE 4-6 (Moderate Ascorbic Acid 500 mg 06/28/24 21:00 06/29/24 09:24 Ascorbic Acid 250 Mg Tablet PO 07/28/24 20:59 500 mg BID GEOVANNA Administration Docusate Sodium 100 mg 06/28/24 21:00 06/29/24 09:24 Docusate Sod 100 Mg Capsule PO 07/28/24 20:59 100 mg BID GEOVANNA Administration Protocol Heparin Sodium (Porcine) 5,000 unit 06/28/24 09:00 06/29/24 09:24 Heparin Sod Inj 5000 Unit/Ml Vial SC 07/12/24 08:59 5,000 unit Q12HR GEOVANNA Administration Piperacillin/Tazobactam/Dextrose 3.375 gm in 50 mls @ 12.5 mls/hr 06/28/24 22:00 06/29/24 05:06 Zosyn IV 07/05/24 21:59 12.5 mls/hr Q8HR GEOVANNA Administration Protocol Vancomycin HCl 1,500 mg/ 500 mls @ 200 mls/hr 06/29/24 14:30 Sodium Chloride IV 07/06/24 14:29 Q8HR GEOVANNA Nicotine 21 mg 06/28/24 09:00 06/29/24 09:24 Nicotine Patch 21 Mg/24 Hr Patch.Td24 TOP 07/28/24 08:59 21 mg QDAY GEOVANNA Administration Ondansetron HCl 4 mg 06/27/24 20:58 Ondansetron Inj 2 Mg/Ml Inj 2 Ml IV 07/27/24 20:57 Q6H PRN NAUSEA OR VOMITING Protocol Pharmacy Consult 1 each 06/28/24 15:15 Vancomycin Pharmacy To Dose 1 Each Each IV 07/28/24 15:14 QDAY PRN CONSULT Zinc Sulfate 220 mg 06/28/24 13:20 06/29/24 09:23 Zinc Sulfate 220 Mg Capsule PO 07/28/24 13:19 220 mg QDAY GEOVANNA Administration Plan Summary: A 33-year-old male patient presented to the ED due to perianal pain and discomfort for 4 days. In March this year patient had incision and drainage was done and is having packing for the past 2 months. Used clindamycin antibiotic oral at that time. Patient was admitted for perianal abscess incision and drainage. Assessment and plan #Perianal abscess #Sepsis secondary to perianal abscess History of perianal abscess that was drained in March this year. Has been having multiple packing and dressing. Finish 2 weeks of oral antibiotic clindamycin. WBC more than 12,000's. CT scan showed 3 x 2.3 x 5.4 cm of renal abscess. WBC 12,000, pulse of 100 bpm, CT showed perianal abscess. Plan Continue vancomycin and Zosyn, de-escalate antibiotic therapy following culture report Wound care follow-up states that dressing will be changed on June 30 Follow-up on blood culture and abscess culture and sensitivity results. Hospital Maintenance: FEN: Start regular diet after I&D DVT ppx: Heparin subcu GI ppx: Protonix IV lines: PIV Sanchez: None Code status: Full code Dispo: MedSurg - Patient's plan and care discussed with my attending, Dr. Jennifer Sanchez M.D. PGY-3 Attending Provider Attestation/Addendum I have examined the patient, reviewed labs and imaging findings, discussed the case with the resident(s), and reviewed entered orders. I agree with the plan of care as outlined in this note, with these additional summaries/recommendations: Patient seen at bedside. No acute overnight events and patient reports his pain is controlled today. Patient admitted for cellulitis and right perianal abscess. Patient POD #1 s/p incision and drainage of right perirectal abscess with general surgery. Patient tolerated procedure well and currently reports his pain is controlled. Intraoperative culture was taken and will follow up results when available. Blood cultures show no growth at 24 hours. Leukocytosis improving. Continue broad-spectrum antibiotics IV vancomycin and Zosyn for now and we will await intraoperative culture results until patient can be safely discharged as he failed outpatient abx treatment prior to hospitalization. Repeat hematology and chemistry panel in AM. Patient updated all the plan and in agreement. All questions answered to satisfaction. Dr. Rodriguez
[2024-06-29] MEDS: Vancomycin Inj 1,500 MG in SODIUM CHLORIDE 0.9% 500 ML 500 ML 200 MG IV ×2 (14:39→22:08)
[2024-06-30] VITALS: BP 114/61; PULSE 67; RESP 16; TEMP 36.7; O2SAT 96
[2024-06-30 04:00] VITALS: BP 108/62; PULSE 52; RESP 15; TEMP 36.6; O2SAT 99
[2024-06-30] MEDS: Vancomycin Inj 1,500 MG in SODIUM CHLORIDE 0.9% 500 ML 500 ML 200 MG IV (05:56)
[2024-06-30] MEDS: PIPER/TAZO 3.375 GM 3.375 GM/50 ML BAG IV (05:57)
[2024-06-30 06:02] LABS: Basophils # (Auto) 0.1 Thou/mm3 (0.0-0.2); Basophils % (Auto) 1 % (0-2.5); Eosinophils # (Auto) 0.1 Thou/mm3 (0.0-0.5); Eosinophils % (Auto) 1 % (0-10); Hematocrit 39.7 % (41.0-53.0); Hemoglobin 12.9 g/dL (13.5-16.0); Immature Granulocytes % (Auto) 1 % (0-0); Immature Granulocytes Auto 0.09 Thou/mm3 (0.00-0.00); Lymphocytes # (Auto) 2.9 Thou/mm3 (1.0-4.8); Lymphocytes % (Auto) 36 % (10-50); Mean Corpuscular HGB Conc 32.5 g/dl (31.0-37.0); Mean Corpuscular Hemoglobin 28.3 pg (25.0-35.0); Mean Corpuscular Volume 87 fL (80-100); Monocytes # (Auto) 0.5 Thou/mm3 (0.0-0.8); Monocytes % (Auto) 6 % (0-12); Neutrophils # (Auto) 4.4 Thou/mm3 (1.8-7.7); Neutrophils % (Auto) 54 % (37-80); Nucleated Red Blood Cell % 0 /100 WBC (0); Platelet Count 259 Thou/mm3 (140-440); RDW Standard Deviation 43.3 fL (35.1-43.9); Red Blood Count 4.56 Miln/mm3 (4.50-5.90); White Blood Count 8.1 Thou/mm3 (3.8-10.6)
[2024-06-30 07:04] LABS: Alanine Aminotransferase 35 U/L (10-49); Albumin, Serum 3.8 gm/dL (3.5-5.0); Albumin/Globulin Ratio 1.8 (1.2-2.2); Alkaline Phosphatase 67 U/L (46-116); Anion Gap 7 (7-16); Aspartate Amino Transferase 18 U/L (0-34); BUN/Creatinine Ratio 6 Ratio (12-20); Bilirubin,Total 0.3 mg/dL (0.3-1.2); Blood Urea Nitrogen 5 mg/dL (9-23); Calcium 8.8 mg/dL (8.3-10.6); Carbon Dioxide 25.8 mMol/L (20.0-31.0); Chloride 111 mMol/L (98-107); Creatinine (Component) 0.9 mg/dL (0.6-1.3); Estimated Creatinine Clearance 172.5 mL/min (>60); Globulin 2.1 gm/dL (2.3-3.5); Glucose 96 mg/dL (74-106); Osmolality,Calculated 284 (275-295); Potassium 4.6 mMol/L (3.4-5.1); Sodium 144 mMol/L (136-145); Total Protein 5.9 gm/dL (5.7-8.2); eGFR > 60 See Note
[2024-06-30 07:33] VITALS: PULSE 61; RESP 18; RESP 96
[2024-06-30 08:00] VITALS: BP 105/62; PULSE 70; RESP 16; TEMP 36.4; O2SAT 98
[2024-06-30] MEDS: HEPARIN SOD INJ 5000 UNIT/ML VIAL SC (08:58)
[2024-06-30] MEDS: ceFAZolin/D5W 2 GM IV 2 GM/100 ML BAG IV (08:58)
[2024-06-30] MEDS: ZINC SULFATE 220 MG CAPSULE PO (08:59)
[2024-06-30] MEDS: ASCORBIC ACID 250 MG TABLET 500 MG PO (09:00)
[2024-06-30] MEDS: DOCUSATE SOD 100 MG CAPSULE PO (09:00)
[2024-06-30] MEDS: NICOTINE PATCH 21 MG/24 HR PATCH.TD24 TOP (09:00)
--- NOTE | 2024-06-30 09:33 | PC.SS ---
Late note 06-29-24: SS met with patient regarding his d/c plan. Pt is alert/oriented. Pt was admitted for Perianal Abscess. Pt confirmed demographic and contact information is correct on facesheet. Pt resides with . Pt ambulates independently without assistance or DME. Pt is ok with all ADLs. Patient?s pharmacy of choice is [facility] [address]. Pt named his , Cecile Rizvi medical decision maker if he is unable. Patient?s choice is to return home upon d/c. Pt does not have an advance directive, SS offered, and pt declined. Pt states not diabetic and is not on dialysis. Pt states he does not have PCP. SS provided pt with verbal choices for PCPs. Pt is requesting to follow up with physicians at the [facility] and will schedule his own appointment. SS provided pt with the Community Resource List which contains the [facility]'s information. D/C plan: Return home Next of Kin: Cecile Rizvi, , phone# [phone] PCP: Establish at the [facility] Address: Correct on facesheet
--- NOTE | 2024-06-30 11:29 | PD.SURPROG ---
Documentation for date of: 06/30/24 Subjective Subjective Narrative: Patient is seen and examined. Pain is improving Exam Vital Signs Temp Pulse Resp BP Pulse Ox O2 Del Method O2 Flow Rate 97.5 F 70 16 105/62 98 Room Air 2 06/30/24 08:00 06/30/24 08:00 06/30/24 08:00 06/30/24 08:00 06/30/24 08:00 06/30/24 08:00 06/29/24 08:00 Constitutional Constitutional: no acute distress Routine Rectal Exam Comments: Improvement of cellulitis and erythema. No bleeding, minimal drainage Assessment & Plan Assessment Additional comments: Postop day #2 status post I&D of perirectal abscess Plan Will change packings and patient can be discharged on oral antibiotics for 7 days. Procedures Procedures Incision and drainage of right perirectal abscess
[2024-06-30 12:00] VITALS: BP 123/73; PULSE 68; RESP 18; TEMP 35.9; O2SAT 98
--- NOTE | 2024-06-30 13:30 | PC.NURSE ---
Per Dr. Tenorio I changed wound care dressing and packed, educated on how to clean and pack, demonstrated that she is able to clean and change the dressing.
[2024-06-30 13:52] LABS: Vancomycin,Trough 13.3 mcg/mL (5.0-10.0)
--- NOTE | 2024-06-30 14:02 | ESDS_ITS ---
<Statement entered by Abdi Hester MD - 07/06/24 07:09> I reviewed above note and agree with findings and plans. I have also personally examined the patient with medicine team and went over assessment and plan with medical team including internal combustion engine subassembler and resident physician. Planned Discharge Date 06/30/24 DS: Providers Provider Date of admission: 06/28/24 05:53 Primary care physician: Physician No Primary/Family Admitting Provider: mAan Mattson MD Attending Provider on Admission: Aman Mattson MD Consults: 06/27/24 20:27 Consult to General Surgery Stat Comment: Consulting Provider: Gerard Tenorio 06/27/24 21:19 Referral Wound Care Routine Comment: Attending Provider on DC: Lety Sanchez MD Discharging Provider: Lety Sanchez MD DS: Diagnosis Problem List Completed Was Problem List Reviewed/Reconciled?: Yes Hospital Course Hospital Course Hospital course: Mr. Garcia is a 33-year-old male with no past medical history who came to [facility] due to perianal pain and discomfort. A CT scan was ordered which revealed a 3 x 2.3 x 5.4 cm perianal abscess and general surgery was consulted. Patient has had previous surgical intervention with incision and drainage along with oral antibiotics in the outpatient setting that he failed. General surgery consulted and stated patient would benefit from incision and drainage so on 1228 patient underwent incision and drainage under general anesthesia with Dr. Tenorio. Patient tolerated the procedure well and the wound was irrigated and cleaned along with appropriately dressed. Patient was continued on IV antibiotic therapy with vancomycin and Zosyn until wound cultures were available. Once wound cultures were resulted with Klebsiella patient's antibiotic therapy was changed to oral Augmentin for period of 7 days. Patient's wound was redressed by general surgery and he was medically cleared for discharge. Patient is recommended to continue with antibiotic therapy for 1 week and maintain a clean and hygienic wound site. He is recommended follow-up in [address] Tenorio in the outpatient setting. Plan for discharge discussed with supervising attending Dr. Mir Sanchez M.D. PGY-3 Assessment and plan #Perianal abscess #Sepsis secondary to perianal abscess History of perianal abscess that was drained in March this year. Has been having multiple packing and dressing. Finish 2 weeks of oral antibiotic clindamycin. WBC more than 12,000's. CT scan showed 3 x 2.3 x 5.4 cm of renal abscess. WBC 12,000, pulse of 100 bpm, CT showed perianal abscess. Plan Continue vancomycin and Zosyn, de-escalate antibiotic therapy following culture report Wound care follow-up states that dressing will be changed on June 30 Follow-up on blood culture and abscess culture and sensitivity results. Hospital Maintenance: FEN: Start regular diet after I&D DVT ppx: Heparin subcu GI ppx: Protonix IV lines: PIV Sanchez: None Code status: Full code Dispo: MedSurg Status at Discharge Functional status at discharge: independent ambulation Overall status at discharge: patient is progressing back to baseline Time Spent with Patient Time attestation: Total time spent providing and/or coordinating discharge services: Time spent: Greater than 30 minutes Exam Vital Signs Temp Pulse Resp BP Pulse Ox O2 Del Method O2 Flow Rate 97.5 F 70 16 105/62 98 Room Air 2 06/30/24 08:00 06/30/24 08:00 06/30/24 08:00 06/30/24 08:00 06/30/24 08:00 06/30/24 08:00 06/29/24 08:00 Discharge Plan Plan Patient Disposition: HOME (Self Care) Patient condition on transfer: Stable Care Plan Goals: Patient is recommended to follow-up with general surgery Dr. Tenorio within 2 weeks Patient is recommended to continue amoxicillin/clavulanic for a period of 7 days to complete antibiotic therapy Patient is recommended to continue with vitamin C and zinc to assist in wound healing Patient is recommended to follow a bowel regimen with docusate/senna to improve regular soft bowel movements. Prescriptions/Referrals Prescriptions/Med Rec: New ascorbic acid (vitamin C) [Vitamin C] 250 mg Tablet 500 mg PO BID Qty: 14 0RF docusate sodium 100 mg Capsule 100 mg PO BID 30 Days Qty: 60 0RF zinc sulfate 50 mg zinc (220 mg) Capsule 220 mg PO QDAY 7 Days Qty: 14 0RF amoxicillin-pot clavulanate 875-125 mg tablet 1 tab PO BID Qty: 14 0RF Referrals: Gerard Tenorio MD [Physician] - No Primary/Family,Physician [Primary Care Provider] - Patient/Caregiver Discharge Instructions Discharge Activity: activity as tolerated Education Materials: Preventing Surgical Site Infections Print Language: Ethiopian Activity Restrictions/Additional Instructions: Pack wound with half-inch packing strip and covered with dry dressings daily. Follow-up with Dr Tenorio in 1 week, please call [phone] for an appointment. Stand Alone Forms: Jasmin Award Info., Patient Portal Info Letter Discharge Order Discharge Orders: Discharge (Routine); Ordered 06/30/24 Ordered By: Lety Sanchez Quality Discharge Quality Measures none
== END 2024-06-30 13:55 | disposition home or self-care (01) | DRG 951 ==
LOC: SERX 20:32 → SERHOLD 22:20 → S3NX 23:12
PROVIDERS: Student in an Organized Health Care Education/Training Program; Surgery; Admitting Provider Internal Medicine; Emergency Provider Emergency Medicine; Visit Provider Internal Medicine
PROC: 0D9P0ZZ Drainage of Rectum, Open Approach (ICD-10-PCS; principal; 2024-06-28 11:30)
DX: L03.317 Cellulitis of buttock (principal); B96.1 Klebsiella pneumoniae [K. pneumoniae] as the cause of diseases classified elsewhere; N15.1 Renal and perinephric abscess; L02.31 Cutaneous abscess of buttock
CPT/HCPCS: 36415; 74177; 80053; 80061; 80202; 81001; 83036; 83605; 83735; 84100; 84145; 84439; 84443; 85025; 85610; 85730; 87040; 87070; 87077; 87186; 87205; 93005; 96365; 96367; 96375; 99285; A4217; A4649; G0378; J0131; J0689; J1100; J1643; J1885; J2250; J2270; J2405; J2543; J2704; J3010; J3370; J3372; J3490; J7040; Q9967; S0077; A9270; J0690; J0736; J0737; J1644